=== PATIENT | female | born 1975 | race Caucasian/White ===

== ENCOUNTER 2018-07-11 16:23 | Emergency (ER) | payer OTHER ==
--- NOTE | 2018-07-11 17:39 | XRAY Report ---
Reason: injury Procedure Date: 07/11/2018 Accession Number: [id number] / [id number] Procedure: XR - Forearm LT CPT Code: FULL RESULT: EXAM: LEFT FOREARM RADIOGRAPHY EXAM DATE: 07/11/2018 05:03 PM. CLINICAL HISTORY: Injury, left forearm. COMPARISON: None. TECHNIQUE: 2 views. FINDINGS: Bones: Normal. No fractures or bone lesions. Joints: Normal. No effusions or subluxations in the visualized wrist or elbow joints. Soft Tissues: Normal. No soft tissue swelling. IMPRESSION: Normal forearm radiography. [facility]
--- NOTE | 2018-07-11 19:03 | ED Physician Documentation ---
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 who got squirmy and felt a pop in the left forearm and since then is developed increasing pain and swelling there.) Review of Systems Constitutional: reports: Reviewed and negative Throat: reports: Reviewed and negative Cardiac: reports: Reviewed and negative PD PAST MEDICAL HISTORY - Past Medical History Neuro: Migraines - Present Medications Home Medications: Ambulatory Orders Medication Instructions Recorded Confirmed No Known Home Medications 07/11/18 07/11/18 - Allergies Allergies/Adverse Reactions: Allergies Allergy/AdvReac Type Severity Reaction Status Date / Time No Known Drug Allergies Allergy Verified 07/11/18 16:49 - Social History Does the pt smoke?: No Smoking Status: Never smoker Does the pt drink ETOH?: No Does the pt have substance abuse?: No PD ED PE NORMAL - Vitals Vital signs reviewed: Yes - General General: Alert and oriented X 3, No acute distress - Extremities Extremities: Other (There is no tenderness of the left wrist or forearm, she is full range of motion but has very positive de Quervain's testing.) - Neuro Neuro: Alert and oriented X 3, Normal speech Results - Vitals Vitals: Vital Signs - 24 hr 07/11/18 16:48 Temperature 36.7 C Heart Rate 95 Respiratory 18 Rate Blood Pressure 141/92 H O2 Saturation 98 Oxygen O2 Source Room air - Rads (name of study) left forearm Radiology: EMP read contemporaneously (neg) PD MEDICAL DECISION MAKING - ED course ED course: This is a 43-year-old woman with acute de Quervain's tenosynovitis. She was placed in a Velcro thumb spica splint and advised on NSAID use and relative rest. Departure - Departure Disposition: 01 Home, Self Care Clinical Impression: De Quervain's disease (radial styloid tenosynovitis) Condition: Good Record reviewed to determine appropriate education?: Yes Instructions: De Quervain Tenosynovitis Comments: Ibuprofen as needed for pain, keep the splint on well active but she do not need to wear it sleeping or bathing. Follow-up with your doctor in a few weeks if not better. Return for new or worsening symptoms. Your blood pressure was elevated today on check into the emergency department. This does not mean that you have hypertension, it is a common phenomenon to come to the emergency department and have elevated blood pressure. I recommend that you see your primary care physician within the week to have it rechecked when you are feeling better.
[2018-07-11 19:10] VITALS: BP 138/88
== END 2018-07-11 19:07 | disposition home or self-care (01) ==
LOC: ED 16:23
DX: M65.4 Radial styloid tenosynovitis [de Quervain] (principal); R03.0 Elevated blood-pressure reading, without diagnosis of hypertension
CPT/HCPCS: 99283

== ENCOUNTER 2021-06-21 18:17 | Emergency (ER) | payer OTHER ==
[2021-06-21] MEDS ORDERED: TETANUS/DIPHTHERIA/PERTUSSIS 0.5 ML SYRINGE IM ONE (18:26)
[2021-06-21 18:28] VITALS: BP 141/98
--- NOTE | 2021-06-21 19:04 | ED Physician Documentation ---
History of Present Illness - Stated complaint Stated Complaint: CUT IN RIGHT HAND - Chief complaint Chief Complaint: Laceration - History obtained from History obtained from: Patient - History of Present Illness Timing: How many hours ago (1) Pain level max: 2 Pain level now: 1 - Additonal information Additional information: 46-year-old female presents to the emergency department with a cut on the right middle finger. This occurred about 1 hour prior to arrival. Cut on a can. Unknown last tetanus. Nothing makes it better or worse. Review of Systems Constitutional: denies: Fever : denies: Now [facility] PAST MEDICAL HISTORY - Past Medical History Past Medical History: Yes Neuro: Migraines - Present Medications Home Medications: Ambulatory Orders Medication Instructions Recorded Confirmed SUMAtriptan [Imitrex] 25 mg PO ONCE PRN 06/21/21 06/21/21 - Allergies Allergies/Adverse Reactions: Allergies Allergy/AdvReac Type Severity Reaction Status Date / Time No Known Drug Allergies Allergy Verified 06/21/21 18:24 - Social History Does the pt smoke?: No Smoking Status: Never smoker Does the pt drink ETOH?: No Does the pt have substance abuse?: No PD ED PE NORMAL - Vitals Vital signs reviewed: Yes - General General: Alert and oriented X 3, No acute distress - HEENT HEENT: Moist mucous membranes - Neck Neck: Supple, no meningeal sign - Derm Derm: Warm and dry - Neuro Neuro: Alert and oriented X 3 PD ED PE EXPANDED - Extremities LISA UE/Hands Visual: 1 - laceration (1.2 cm, linear, subcutaneous. NVI) Results - Vitals Vitals: Vital Signs - 24 hr 06/21/21 06/21/21 06/21/21 18:22 18:52 19:14 Temperature 37.0 C Heart Rate 86 80 Respiratory 16 18 18 Rate Blood Pressure 141/98 H O2 Saturation 98 9 L Oxygen O2 Source Room air Procedures - Laceration (location) R 3rd digit Length in cm: 1.2 Wound type: Linear, Clean Neurovascular status: Sensory intact, Motor intact, Vascular intact Wound preparation: Irrigated copiously NS Skin layer closure: Dermabond (T ring closure system) Other: Patient tolerated well, No complications, Neurovascular intact, Dressing applied, Tetanus booster given PD MEDICAL DECISION MAKING - ED course Complexity details: considered differential, d/w patient ED course: 46-year-old female with a laceration to the right third digit. Repaired with T ring closure system. No active bleeding. A splint was applied for comfort and to protect the wound. Warnings of infection and instructions on wound care given at bedside. Also counseled on how to minimize scarring. Patient counseled regarding signs and symptoms for which I believe and urgent re-evaluation would be necessary. Patient with good understanding of and agreement to plan and is comfortable going home at this time This document was made in part using voice recognition software. While efforts are made to proofread this document, sound alike and grammatical errors may occur. Departure - Departure Disposition: 01 Home, Self Care Clinical Impression: Finger laceration Qualifiers: Encounter type: initial encounter Finger: middle finger Damage to nail status: without damage Foreign body presence: without foreign body Laterality: right Qualified Code(s): S61.212A - Laceration without foreign body of right middle finger without damage to nail, initial encounter Condition: Good Instructions: ED Laceration Hand Comments: Please follow-up with your doctor as needed for further care. Return if you worsen. The glue and T ring closure system will fall off on its own. This usually takes around 7 days. Do not apply ointment as this may dissolve the glue. You can wear the splint as needed for comfort. Return if you notice redness, swelling or drainage from the wound. Discharge Date/Time: 06/21/21 19:16
== END 2021-06-21 19:16 | disposition home or self-care (01) ==
LOC: ED 18:17
DX: S61.212A Laceration without foreign body of right middle finger without damage to nail, initial encounter (principal); W26.8XXA Contact with other sharp object(s), not elsewhere classified, initial encounter; Z23 Encounter for immunization; Z71.85 Encounter for immunization safety counseling
CPT/HCPCS: 12001; 90471; 99283